=== PATIENT | male | born 1965 | race Caucasian/White ===

== ENCOUNTER 2016-10-02 20:06 | Day surgery (SDC) | payer OTHER ==
[~2016-10-02] VITALS: Ht 195.6 cm; Wt 102.6 kg
[~2016-10-02 20:06] MED LIST: LISI10TA4 PO
[2016-10-02] MEDS ORDERED: ONDANSETRON 4MG/2ML VIAL (J2405) As Ordered ONE (22:13)
[2016-10-02] MEDS ORDERED: MORPHINE 4 MG/ML 1ML SYRINGE As Ordered ONE ×2 (22:13→23:14)
[2016-10-02 22:28] LABS: BASO # 0.6 K/mm3 (0.0-0.2); BASO % 1.7 % (0.0-1.0); EOS # 0.3 K/mm3 (0.0-0.50); EOS % 0.9 % (0.0-3.0); LARGE UNSTAINED CELL # 0.8 K/mm3 (0.0-0.4); LARGE UNSTAINED CELL % 2.4 % (0.0-4.0); LYMPH # 18.7 K/mm3 (1.5-4.5); LYMPH % 52.4 % (24.0-44.0); MEAN CORPUSCULAR HEMOGLOBIN 32.6 pg (27.0-33.0); MEAN CORPUSCULAR HGB CONC 34.6 g/dl (32.0-36.5); MEAN CORPUSCULAR VOLUME 94.1 fl (80.0-96.0); MONO # 0.8 K/mm3 (0.0-0.8); MONO % 2.4 % (0.0-5.0); NEUTROPHILS # 13.7 K/mm3 (1.8-7.7); NEUTROPHILS % 40.1 % (36.0-66.0); PLATELET COUNT, AUTOMATED 224 k/mm3 (150-450); RED CELL DISTRIBUTION WIDTH 12.3 % (11.5-14.5)
[2016-10-02 22:32] LABS: WHITE BLOOD COUNT 34.1 K/mm3 (4.0-10.0)
[2016-10-02 22:38] LABS: ALBUMIN 4.3 GM/DL (3.2-5.2); ALBUMIN/GLOBULIN RATIO 1.59 (1.00-1.93); ALKALINE PHOSPHATASE 82 U/L (45-117); ALT/SGPT 60 U/L (12-78); ANION GAP 6 MEQ/L (8-16); AST/SGOT 24 U/L (15-37); BILIRUBIN,DIRECT 0.2 MG/DL (0.0-0.2); BILIRUBIN,TOTAL 0.6 MG/DL (0.2-1.0); BLOOD UREA NITROGEN 14 MG/DL (7-18); CALCIUM LEVEL 9.1 MG/DL (8.5-10.1); CARBON DIOXIDE LEVEL 31 MEQ/L (21-32); CHLORIDE LEVEL 103 MEQ/L (98-107); CREATININE FOR GFR 1.18 MG/DL (0.70-1.30); GLOMERULAR FILTRATION RATE > 60.0 (>56); GLUCOSE, FASTING 104 MG/DL (70-105); POTASSIUM SERUM 4.5 MEQ/L (3.5-5.1); SODIUM LEVEL 140 MEQ/L (136-145)
[2016-10-02] MEDS ORDERED: ISOVUE-370 76% 100ML VIAL (Q9967) As Ordered ONE (22:43)
--- NOTE | 2016-10-02 23:50 | REPUSA ---
CLINICAL HISTORY: Diverticulitis. TECHNIQUE: CT abdomen and pelvis following administration of IV contrast. COMPARISON: No pertinent prior studies are available at this time. CT ABDOMEN WITH CONTRAST: Lung bases: No lung base infiltrate or effusion. Liver: No intrahepatic ductal dilation. Gallbladder: Normally distended. Pancreas: No pancreatic duct dilation. Bowel loops: Nondistended. Spleen: Normal size. Adrenals: Normal size. Kidneys: No stones or hydronephrosis. Aorta: Normal caliber. Peritoneum: No free air. CT PELVIS WITH CONTRAST: Colon: Multiple colonic diverticula without evidence of diverticulitis. Appendix: The appendix is prominent at 12 mm diameter and demonstrates adjacent fat stranding, consis tent with appendicitis. There is no evidence of perforation or abscess. Bladder: Normally distended. Pelvic organs: Unremarkable. Peritoneum: No fluid. Skeleton: No acute findings. IMPRESSION: 1. Acute appendicitis. 2. Diverticulosis.
[2016-10-02] MEDS ORDERED: OMEP20CA3 PO (23:56)
[2016-10-03] VITALS (9 sets, daily range): BP systolic 108–141; BP diastolic 55–76
--- NOTE | 2016-10-03 00:40 | EDDOCDS ---
Physician Documentation [facility] Name: Vasiliy Joy Age: 51 yrs Sex: Male : 1965 Arrival Date: 10/02/2016 Time: 20:06 Bed I2 / M2 Private MD: Austyn Tavarez P. Disposition: 10/03/16 00:09 Hospitalization ordered by Kong Yusuf for Inpatient Admission. Preliminary diagnosis is Acute appendicitis. - Bed requested for Admit. - Status is Inpatient Admission. [facility] - Condition is Stable. - Problem is new. - Symptoms are unchanged. Historical: - Allergies: no known allergies; - Home Meds: 1. lisinopril 10 mg Oral tab 1 tab once daily - PMHx: Hypertension; CLL; GERD; Diverticulitis; - PSHx: Hernia repair; septoplasty; - Social history: Smoking status: Patient states former smoker of tobacco. No barriers to communication noted, The patient speaks fluent Kyrgyz. - Family history: Not pertinent. - : The pt / caregiver states he / she is not on anticoagulants. Home medication list is obtained from the patient. - Exposure Risk Screening:: None identified. Vital Signs: 10/02 20:07 BP 164 / 94; Pulse 69; Resp 18 S; Temp 98.1(O); Pulse Ox 99% on R/A; Weight 102.06 kg / dd6 225 lbs (R); Height 75 in. (190.50 cm) (R); 23:29 BP 128 / 69 LA Supine (auto/reg); Pulse 69 MON; Resp 18 S; Temp 99.1(O); Pulse Ox 94% cln on R/A; Pain 0/10; 10/03 00:36 BP 127 / 78; Pulse 67; Resp 16; Temp 98.2; Pulse Ox 95% ; Pain 6/10; [facility] 10/02 20:07 Body Mass Index 28.12 (102.06 kg, 190.50 cm) dd6 MDM: 10/02 21:39 NS 0.9% 1000 ml IV at bolus once ordered. mo1 21:39 Ondansetron 4 mg IVP once ordered. mo1 21:39 IV Saline Lock ordered. mo1 21:39 Undress patient appropriately for examination ordered. mo1 21:40 morphine 4 mg IVP once ordered. mo1 21:40 Basic Metabolic Profile Ordered. EDMS 21:40 CBC with Diff Ordered. EDMS 21:40 Lipase Ordered. EDMS 21:40 Liver Profile Ordered. EDMS 21:40 Urinalysis Ordered. EDMS 21:40 CT ABD & PELVIS: IV Contrast Only Ordered. EDMS 21:41 NOTHING BY MOUTH+DIET ordered. EDMS 22:35 CBC with Diff Reviewed. mo1 22:36 Urinalysis Reviewed. mo1 22:40 Basic Metabolic Profile Reviewed. mo1 22:41 Lipase Reviewed. mo1 22:41 Liver Profile Reviewed. mo1 23:06 morphine 4 mg IVP once ordered. mo1 23:43 Financial registration complete. zo 23:46 BED REQUEST+ADM ordered. EDMS 10/03 00:16 Admission Orders was scanned into [employer] and attached to record. sew Administered Medications: 10/02 22:23 Drug: NS 0.9% 1000 ml [sodium chloride 0.9 % intravenous solution] Route: IV; Rate: lf1 bolus; Site: right antecubital; 22:23 Drug: morphine 4 mg [morphine 4 mg/mL intravenous cartridge (1 mL)] Route: IVP; Site: lf1 right antecubital; 22:24 Drug: Ondansetron 4 mg [ondansetron HCl 2 mg/mL intravenous solution (2 mL)] Route: lf1 IVP; Site: right antecubital; 23:23 Drug: morphine 4 mg Route: IVP; Site: right antecubital; [facility] Signatures: Dispatcher [employer] [place] EDMS Gerard Guido Lisa, RN RN lf1 Amaris BrarRN RN [facility] Kailee Jordan Michael, PA PA mo1 Faith Fisher RN RN ms18 The chart was reviewed and I authenticate all verbal orders and agree with the evaluation and treatment provided.Attachments: 10/03 00:16 Admission Orders sew MTDD
--- NOTE | 2016-10-03 00:40 | EDDOCDS ---
Nurse's Notes [facility] Name: Vasiliy Joy Age: 51 yrs Sex: Male : 1965 Arrival Date: 10/02/2016 Time: 20:06 Bed I2 / M2 Private MD: Austyn Tavarez P. Diagnosis: Acute appendicitis Presentation: 10/02 20:24 Presenting complaint: Patient states: that he was seen at urgent care earlier today and ms18 they sent him here because they thought he had appendicitis. Pt reports nauseous and severe abd pain. Adult Sepsis Screening: The patient does not have new or worsening altered mentation. Patient's respiratory rate is less than 22. Systolic blood pressure is greater than 100. Patient has a qSOFA score of 0- Negative Sepsis Screen. Suicide/Homicide risk assessment- the patient denies having any suicidal and/or homicidal ideations and does not present with any other emotional, behavioral or mental health complaints. Status: Patient is not a non emergency services ambulance driver or dependent. Transition of care: patient was not received from another setting of care. 20:24 Acuity: DIANE Level 3 ms18 20:24 Method Of Arrival: Walkin/Carried/Asstd ms18 Triage Assessment: 20:27 General: Appears in no apparent distress, uncomfortable, Behavior is appropriate for ms18 age, cooperative, pleasant. Pain: Pain currently is 8 out of 10 on a pain scale. Quality of pain is described as dull, stabbing, Is continuous. Pain: Location: umbilical area, right lower quadrant and left lower quadrant. HIV screening NA for this visit Offered previously. Neurological: No deficits noted. Respiratory: Airway is patent Respiratory effort is even, unlabored. GI: Reports nausea. Derm: Skin is pink, warm & dry. Historical: - Allergies: no known allergies; - Home Meds: 1. lisinopril 10 mg Oral tab 1 tab once daily - PMHx: Hypertension; CLL; GERD; Diverticulitis; - PSHx: Hernia repair; septoplasty; - Social history: Smoking status: Patient states former smoker of tobacco. No barriers to communication noted, The patient speaks fluent Korean. - Family history: Not pertinent. - : The pt / caregiver states he / she is not on anticoagulants. Home medication list is obtained from the patient. - Exposure Risk Screening:: None identified. Screenin:25 Screening information is obtained from the patient. Fall risk: No risks identified. lf1 Assistance ADL's: requires no assistance with activities of daily living. Abuse/DV Screen: The patient / caregiver reports he/she is: not in a situation that causes fear, pain or injury. Nutritional screening: No deficits noted. Advance Directives: Currently, there is no health care proxy. home support is adequate. Assessment: 22:25 Adult Sepsis Screening: The patient does not have new or worsening altered mentation. lf1 Patient's respiratory rate is less than 22. Systolic blood pressure is greater than 100. Patient has a qSOFA score of 0- Negative Sepsis Screen. General: Appears in no apparent distress, comfortable, Behavior is cooperative. Pain: Location: right lower quadrant and umbilical area Pain currently is 8 out of 10 on a pain scale. Neurological: Level of Consciousness is awake, alert, Oriented to person, place, time. EENT: No deficits noted. Cardiovascular: Chest pain is denied. Respiratory: Respiratory effort is even, unlabored, Breath sounds are clear bilaterally. GI: Abdomen is non- distended Bowel sounds present X 4 quads. Abd is soft Abd is tender to palpation in right lower quadrant and left lower quadrant. : No deficits noted. Derm: Skin is normal. Injury Description: No known injury. 23:29 General: Appears in no apparent distress, comfortable, Behavior is appropriate for age, [facility] cooperative, returned from CT, requested pain meds provided, resting quietly with family at bedside, awaiting results. 10/03 00:36 General: family at bedside, awaiting admission to OR, no visible distress, no new [facility] problems or complaints, deny further needs. Vital Signs: 10/02 20:07 BP 164 / 94; Pulse 69; Resp 18 S; Temp 98.1(O); Pulse Ox 99% on R/A; Weight 102.06 kg dd6 (R); Height 75 in. (190.50 cm) (R); 23:29 BP 128 / 69 LA Supine (auto/reg); Pulse 69 MON; Resp 18 S; Temp 99.1(O); Pulse Ox 94% cln on R/A; Pain 0/10; 10/03 00:36 BP 127 / 78; Pulse 67; Resp 16; Temp 98.2; Pulse Ox 95% ; Pain 6/10; [facility] 10/02 20:07 Body Mass Index 28.12 (102.06 kg, 190.50 cm) dd6 Vitals: 10/02 20:07 Log In Time: October 02, 2016 at 20:05. dd6 ED Course: 20:07 Patient visited by Claude Rodriguez PCA. dd6 20:07 Austyn Tavarez is Private Physician. dd6 20:07 Patient moved to Waiting dd6 20:08 Patient moved to Pre RCE dd6 20:26 Triage Initiated ms18 20:52 Kg Hollis PA is PHCP. mo1 20:52 Peter Melton MD is Attending Physician. mo1 20:55 Patient moved to I7 cz 21:38 Patient visited by Kg Hollis PA. mo1 22:25 The patient / caregiver is instructed regarding the plan of care and ED course. lf1 22:25 Inserted saline lock: 20 gauge in right antecubital area and blood collected. The lf1 patient tolerated the procedure well. Labs drawn. (by ED staff). Sent per order to lab. 22:29 Patient visited by Kelley Shetty RN. lf1 22:33 Notified provider of elevated WBC of 34.1 . lf1 22:37 Patient visited by Kelley Shetty RN. lf1 22:43 Patient moved to I2 / M2 cln 23:29 Patient visited by Amaris Brar RN. [facility] 23:33 Patient visited by Kate Baker PCA. cln 01 00:09 Kong Yusuf DO is Hospitalizing Provider. mo1 00:16 Admission Orders was scanned into [employer] and attached to record. sew 00:21 CT ABD & PELVIS: IV Contrast Only Returned. EDMS 00:36 No procedures done that require assistance. [facility] Administered Medications: 10/02 22:23 Drug: NS 0.9% 1000 ml [sodium chloride 0.9 % intravenous solution] Route: IV; Rate: lf1 bolus; Site: right antecubital; 22:23 Drug: morphine 4 mg [morphine 4 mg/mL intravenous cartridge (1 mL)] Route: IVP; Site: lf1 right antecubital; 22:24 Drug: Ondansetron 4 mg [ondansetron HCl 2 mg/mL intravenous solution (2 mL)] Route: lf1 IVP; Site: right antecubital; 23:23 Drug: morphine 4 mg Route: IVP; Site: right antecubital; [facility] Order Results: Lab Order: Basic Metabolic Profile; SPEC'M 10/02/16 22:10 Test: GLUCOSE, FASTING; Value: 104; Range: 70-105; Units: MG/DL; Status: F Test: BLOOD UREA NITROGEN; Value: 14; Range: 7-18; Units: MG/DL; Status: F Test: CREATININE FOR GFR; Value: 1.18; Range: 0.70-1.30; Units: MG/DL; Status: F Test: GLOMERULAR FILTRATION RATE; Value: > 60.0; Range: >56; Status: F Test: SODIUM LEVEL; Value: 140; Range: 136-145; Units: MEQ/L; Status: F Test: POTASSIUM SERUM; Value: 4.5; Range: 3.5-5.1; Units: MEQ/L; Status: F Test: CHLORIDE LEVEL; Value: 103; Range: 98-107; Units: MEQ/L; Status: F Test: CARBON DIOXIDE LEVEL; Value: 31; Range: 21-32; Units: MEQ/L; Status: F Test: ANION GAP; Value: 6; Range: 8-16; Abnormal: Below low normal; Units: MEQ/L; Status: F Test: CALCIUM LEVEL; Value: 9.1; Range: 8.5-10.1; Units: MG/DL; Status: F Test Note: ; Units are mL/min/1.73 m2 Chronic Kidney Disease Staging per NKF: Stage I & II GFR >=60 Normal to Mildly Decreased Stage III GFR 30-59 Moderately Decreased Stage IV GFR 15-29 Severely Decreased Stage V GFR <15 Very Little GFR Left ESRD GFR <15 on OPHTHALMIC PHOTOGRAPHER Lab Order: CBC with Diff; SPEC'M 10/02/16 22:10 Test: WHITE BLOOD COUNT; Value: 34.1; Range: 4.0-10.0; Abnormal: Above upper panic limits; Units: K/mm3; Status: F Test: RED BLOOD COUNT; Value: 4.68; Range: 4.30-6.10; Units: M/mm3; Status: F Test: HEMOGLOBIN; Value: 15.2; Range: 14.0-18.0; Units: g/dl; Status: F Test: HEMATOCRIT; Value: 44.1; Range: 42.0-52.0; Units: %; Status: F Test: MEAN CORPUSCULAR VOLUME; Value: 94.1; Range: 80.0-96.0; Units: fl; Status: F Test: MEAN CORPUSCULAR HEMOGLOBIN; Value: 32.6; Range: 27.0-33.0; Units: pg; Status: F Test: MEAN CORPUSCULAR HGB CONC; Value: 34.6; Range: 32.0-36.5; Units: g/dl; Status: F Test: RED CELL DISTRIBUTION WIDTH; Value: 12.3; Range: 11.5-14.5; Units: %; Status: F Test: PLATELET COUNT, AUTOMATED; Value: 224; Range: 150-450; Units: k/mm3; Status: F Test: NEUTROPHILS %; Value: 40.1; Range: 36.0-66.0; Units: %; Status: F Test: LYMPH %; Value: 52.4; Range: 24.0-44.0; Abnormal: Above high normal; Units: %; Status: F Test: MONO %; Value: 2.4; Range: 0.0-5.0; Units: %; Status: F Test: EOS %; Value: 0.9; Range: 0.0-3.0; Units: %; Status: F Test: BASO %; Value: 1.7; Range: 0.0-1.0; Abnormal: Above high normal; Units: %; Status: F Test: LARGE UNSTAINED CELL %; Value: 2.4; Range: 0.0-4.0; Units: %; Status: F Test: NEUTROPHILS #; Value: 13.7; Range: 1.8-7.7; Abnormal: Above high normal; Units: K/mm3; Status: F Test: LYMPH #; Value: 18.7; Range: 1.5-4.5; Abnormal: Above high normal; Units: K/mm3; Status: F Test: MONO #; Value: 0.8; Range: 0.0-0.8; Units: K/mm3; Status: F Test: EOS #; Value: 0.3; Range: 0.0-0.50; Units: K/mm3; Status: F Test: BASO #; Value: 0.6; Range: 0.0-0.2; Abnormal: Above high normal; Units: K/mm3; Status: F Test: LARGE UNSTAINED CELL #; Value: 0.8; Range: 0.0-0.4; Abnormal: Above high normal; Units: K/mm3; Status: F Test Note: ; A Pathologist review of this differential can help in the evaluation of a differential diagnosis. Please order a Pathologist Review (PATHREVCOMP) if deemed necessary. Results are subject to change if a Pathologist Review is performed.\T\ Patient : 1965 Lab Order: Lipase; SPEC'M 10/02/16 22:10 Test: LIPASE; Value: 138; Range: 73-393; Units: U/L; Status: F Lab Order: Liver Profile; SPEC'M 10/02/16 22:10 Test: AST/SGOT; Value: 24; Range: 15-37; Units: U/L; Status: F Test: ALT/SGPT; Value: 60; Range: 12-78; Units: U/L; Status: F Test: ALKALINE PHOSPHATASE; Value: 82; Range: 45-117; Units: U/L; Status: F Test: BILIRUBIN,TOTAL; Value: 0.6; Range: 0.2-1.0; Units: MG/DL; Status: F Test: BILIRUBIN,DIRECT; Value: 0.2; Range: 0.0-0.2; Units: MG/DL; Status: F Test: TOTAL PROTEIN; Value: 7.0; Range: 6.4-8.2; Units: GM/DL; Status: F Test: ALBUMIN; Value: 4.3; Range: 3.2-5.2; Units: GM/DL; Status: F Test: ALBUMIN/GLOBULIN RATIO; Value: 1.59; Range: 1.00-1.93; Status: F Lab Order: Urinalysis; SPEC'M 10/02/16 22:17 Test: APPEARANCE, URINE; Value: CLEAR; Range: CLEAR; Status: F Test: COLOR, URINE; Value: YELLOW; Range: YELLOW; Status: F Test: PH,URINE; Value: 6.0; Range: 5.0-9.0; Units: UNITS; Status: F Test: SPECIFIC GRAVITY URINE AUTO; Value: 1.011; Range: 1.002-1.035; Status: F Test: PROTEIN, URINE AUTO; Value: NEGATIVE; Range: NEGATIVE; Units: mg/dL; Status: F Test: GLUCOSE, URINE (UA) AUTO; Value: NEGATIVE; Range: NEGATIVE; Units: mg/dL; Status: F Test: KETONE, URINE AUTO; Value: NEGATIVE; Range: NEGATIVE; Units: mg/dL; Status: F Test: UROBILINOGEN, URINE AUTO; Value: 0.2; Range: 0.0-2.0; Units: mg/dL; Status: F Test: BILIRUBIN, URINE AUTO; Value: NEGATIVE; Range: NEGATIVE; Status: F Test: NITRITE, URINE AUTO; Value: NEGATIVE; Range: NEGATIVE; Status: F Test: LEUKOCYTE ESTERASE, URINE AUTO; Value: NEGATIVE; Range: NEGATIVE; Status: F Test: BLOOD, URINE BLOOD; Value: 1+; Range: NEGATIVE; Abnormal: Above high normal; Status: F Test: WBC, URINE AUTO; Value: 0; Range: 0-3; Units: /HPF; Status: F Test: RBC, URINE AUTO; Value: 5; Range: 0-3; Abnormal: Above high normal; Units: /HPF; Status: F Test: BACTERIA, URINE AUTO; Value: NEGATIVE; Range: NEGATIVE; Status: F Test: SQUAMOUS EPITHELIAL CELL UR AU; Value: 0; Range: 0-6; Units: /HPF; Status: F Test: HYALINE CAST, URINE AUTO; Value: 0; Range: 0-1; Units: /LPF; Status: F Radiology Order: CT ABD & PELVIS: IV Contrast Only Test: CT ABD & PELVIS: IV Contrast Only REASON FOR EXAMINATION: Diverticulitis; ; CLINICAL HISTORY: Diverticulitis.; TECHNIQUE: CT abdomen and pelvis following administration of IV contrast.; ; COMPARISON: No pertinent prior studies are available at this time.; ; CT ABDOMEN WITH CONTRAST:; Lung bases: No lung base infiltrate or effusion.; Liver: No intrahepatic ductal dilation.; Gallbladder: Normally distended.; Pancreas: No pancreatic duct dilation.; Bowel loops: Nondistended.; Spleen: Normal size.; Adrenals: Normal size.; Kidneys: No stones or hydronephrosis.; Aorta: Normal caliber.; Peritoneum: No free air.; ; CT PELVIS WITH CONTRAST:; Colon: Multiple colonic diverticula without evidence of diverticulitis.; Appendix: The appendix is prominent at 12 mm diameter and demonstrates adjacent fat stranding, consis; tent with appendicitis. There is no evidence of perforation or abscess.; Bladder: Normally distended.; Pelvic organs: Unremarkable.; Peritoneum: No fluid.; Skeleton: No acute findings.; ; IMPRESSION:; 1. Acute appendicitis.; 2. Diverticulosis.; ; Outcome: 10/03 00:09 Decision to Hospitalize by Provider. mo1 00:36 Discharge Assessment: Patient awake, alert and oriented x 3. No cognitive and/or [facility] functional deficits noted. Patient verbalized understanding of disposition instructions. patient administered narcotics - yes. Patient was admitted to the hospital or transferred to another facility. The following High Risk Discharge criteria are identified: None. Admitted to OR accompanied by nurse, accompanied by tech, family with patient, via stretcher, with chart. Condition: good. CT Study completed. Property packaged and taken by . 00:39 Patient left the ED. [facility] Signatures: Dispatcher [employer] EDMS Mil Mariano RN ESSIE cz Kelley ShettyRN RN lf1 Claude Rodriguez, COMPOUNDING AND FINISHING SUPERVISOR COMPOUNDING AND FINISHING SUPERVISOR dd6 Amaris Brar RN RN [facility] Kailee Jordan Michael, PA PA mo1 Faith Fisher RN RN ms18 Kate Baker, COMPOUNDING AND FINISHING SUPERVISOR COMPOUNDING AND FINISHING SUPERVISOR cln MTDD
[2016-10-03] MEDS ORDERED: BUPIVACAINE/EPIN 0.25% 30 ML VIAL As Ordered ONE (00:42)
[2016-10-03] MEDS ORDERED: MIDAZOLAM INJ 2 MG/2 ML VIAL (J2250) As Ordered ONE (00:44)
[2016-10-03] MEDS ORDERED: fentaNYL 250 MCG/5 ML INJECTION (J3010) As Ordered ONE (00:44)
[2016-10-03] MEDS ORDERED: PROPOFOL 200 MG/20 ML VIAL As Ordered ONE (00:45)
[2016-10-03] MEDS ORDERED: ROCURONIUM BROMIDE 50 MG/5 ML VIAL As Ordered ONE (00:48)
[2016-10-03] MEDS ORDERED: LIDOCAINE 2% INJ 100 MG/5 ML SDV (FOR ANES.) As Ordered ONE (00:49)
[2016-10-03] MEDS ORDERED: OMEPRAZOLE 20 MG CAP PO PRN (01:00)
[2016-10-03] MEDS ORDERED: ACETAMINOPHEN TAB 650MG DOSE (2X325MG) PO PRN (01:00)
[2016-10-03] MEDS ORDERED: ONDANSETRON 4MG/2ML VIAL (J2405) IV PRN ×2 (01:00→02:45)
[2016-10-03] MEDS ORDERED: MORPHINE 2 MG/ML 1ML SYRINGE IV PRN ×2 (01:00→02:45)
[2016-10-03] MEDS ORDERED: CIPROFLOXACIN/D5W 400 MG/200 ML BAG (J0744) As Ordered ONE (01:04)
[2016-10-03] MEDS ORDERED: dexameTHASONE 4 MG/ML 1ML VIAL (J1100) As Ordered ONE (01:48)
[2016-10-03] MEDS ORDERED: ONDANSETRON 4MG/2ML VIAL (J2405) As Ordered ONE (01:57)
[2016-10-03] MEDS ORDERED: PERCOCET 5MG/325MG TAB PO PRN (02:45)
[2016-10-03] MEDS ORDERED: METOCLOPRAMIDE INJ 10MG/2ML VIAL (J2765) IV PRN (02:45)
[2016-10-03] MEDS ORDERED: fentaNYL 100 MCG/2 ML INJECTION (J3010) IV PRN (02:45)
[2016-10-03] MEDS ORDERED: LR 1,000 ML IV SCH (02:45)
[2016-10-03] MEDS: LR 1,000 ML IV SCH ×3 (04:00→20:29)
[2016-10-03] MEDS: metroNIDAZOLE 500 MG in APPROPRIATE DILUENT 1 EA IV SCH ×3 (06:11→21:34)
[2016-10-03] MEDS: HEPARIN SOD (PORCINE) 5000 UNITS/ML VIAL SC SCH ×3 (06:12→21:34)
[2016-10-03] MEDS ORDERED: SENNA 8.6 MG TAB (SENOKOT) PO SCH (09:00)
[2016-10-03] MEDS ORDERED: SENOKOT S TAB PO SCH (09:00)
[2016-10-03] MEDS ORDERED: LISINOPRIL 10 MG TAB PO SCH (09:00)
[2016-10-03] MEDS: KETOROLAC 30 MG/ML VIAL (J1885) IV PRN ×3 (09:15→23:49)
[2016-10-03] MEDS: SENOKOT S TAB PO SCH ×2 (09:15→20:29)
[2016-10-03] MEDS: LISINOPRIL 10 MG TAB PO SCH (09:16)
--- NOTE | 2016-10-03 10:39 | HPE ---
DATE OF ADMISSION: 10/03/2016 REASON FOR ADMISSION: Acute appendicitis. HISTORY OF PRESENT ILLNESS: The patient is a 51-year-old male who started with right lower quadrant pain which started around 10 o'clock this morning. The pain got progressive worse. He denies any nausea or vomiting, did have a fever by the time he to the emergency room. No other complaints. No recent travel. No recent trauma to the area. No recent illness. He never had any pains like this in the past. PAST MEDICAL HISTORY: 1. Hypertension. 2. Chronic lymphocytic leukemia (CLL). 3. Gastroesophageal reflux disease (GERD). 4. Diverticulosis. PAST SURGICAL HISTORY: 1. Hernia repair. 2. Septoplasty. HOME MEDICATIONS: Lisinopril. ALLERGIES: None. SOCIAL HISTORY: Denies any drug, alcohol, tobacco abuse. FAMILY HISTORY: Noncontributory. REVIEW OF SYSTEMS: Per positives stated in history of present illness (HPI). PHYSICAL EXAMINATION: GENERAL: Awake, alert and oriented times three, no acute distress. VITAL SIGNS: Blood pressure 164/94, pulse 69, respirations 18, temperature 98.1, pulse ox 99% room air. HEENT: Pupils equal round react to light and accommodation. HEART: S1-S2 regular rate. LUNGS: Clear to auscultation bilaterally. ABDOMEN: Soft, tender to palpation in right lower quadrant. Localized guarding. No rebounding, no rigidity. Bowel sounds positive. EXTREMITIES: No cyanosis, clubbing or edema. . LABORATORY DATA: White count 34.1, hemoglobin 15.2, platelets 224, potassium 4.5. IMAGING STUDIES: CT abdomen and pelvis shows dilated appendix a 12 mm in diameter with adjacent fat stranding concerning for appendicitis. ASSESSMENT/PLAN: Patient is a 51-year-old male with acute appendicitis. Recommendation to proceed with laparoscopy, possible open appendectomy. Risks and benefits procedure not limited to but including bleeding, infection, hernia formation, damage to surrounding structures, possible need for further surgery were discussed in detail with the patient. Informed consent was obtained and procedure was planned.
--- NOTE | 2016-10-03 11:28 | RO ---
DATE OF PROCEDURE: 10/03/2016 PREOPERATIVE DIAGNOSIS: Acute appendicitis. POSTOPERATIVE DIAGNOSIS: Acute appendicitis. PROCEDURE: Laparoscopic appendectomy. SURGEON: Dr. Yusuf. BOX COVERER HAND: None. ANESTHESIA: General: ESTIMATED BLOOD LOSS: 5. COMPLICATIONS: None. INDICATIONS FOR PROCEDURE: The patient is a 51-year-old male who presents with a 24-hour history of the right lower quadrant abdominal pain getting progressively worse. He came to the emergency room and was found to have an elevated white count, as well as CT findings consistent with acute appendicitis. After careful history and physical, recommendation was to proceed with laparoscopic appendectomy. Risks and procedure, not limited to, but including bleeding, infection, hernia formation, damage to surrounding structures and possible need for further surgery were discussed in detail with the patient. Informed was obtained and the procedure was planned. DESCRIPTION OF PROCEDURE: The patient brought back to operating room 1. After sufficient sedation, the abdomen was sterilely prepped and draped. Next, a time-out was done to confirm proper patient and proper procedure. Following that, a 5 mm incision made in left upper quadrant. Veress needle was inserted and the abdomen was insufflated to 15 mmHg. Next, a 5 mm Optiview port was used to gain access to the abdomen. Once inside, an 8 mm port was placed in the umbilicus and a 5 mm port suprapubically. The cecum was then identified and traced back to the appendix. The appendix was then elevated. It did appear grossly inflamed and edematous. Mesoappendix was taken down using Enseal. Once the base the appendix was reached, two PDS Endoloops were placed around the base and the appendix amputated using Enseal. The appendix was brought out of the umbilical port site in a 5 mm EndoCatch bag. Abdomen was then desufflated. Skin incisions were closed with #4-0 Vicryl subcuticular sutures. Abdomen was cleaned and dried. Steri-Strips, 4x4 and tape were applied, thus ending the procedure.
[2016-10-03 12:35] LABS: MEAN CORPUSCULAR HEMOGLOBIN 32.1 pg (27.0-33.0); MEAN CORPUSCULAR HGB CONC 33.9 g/dl (32.0-36.5); MEAN CORPUSCULAR VOLUME 94.7 fl (80.0-96.0); PLATELET COUNT, AUTOMATED 225 k/mm3 (150-450); RED CELL DISTRIBUTION WIDTH 12.2 % (11.5-14.5)
[2016-10-03 12:53] LABS: WHITE BLOOD COUNT 34.5 K/mm3 (4.0-10.0)
[2016-10-03 12:54] LABS: DIFF SLIDE NUMBER 91
[2016-10-03 13:04] LABS: ANION GAP 9 MEQ/L (8-16); BLOOD UREA NITROGEN 13 MG/DL (7-18); CALCIUM LEVEL 8.6 MG/DL (8.5-10.1); CARBON DIOXIDE LEVEL 26 MEQ/L (21-32); CHLORIDE LEVEL 104 MEQ/L (98-107); CREATININE FOR GFR 1.23 MG/DL (0.70-1.30); GLOMERULAR FILTRATION RATE > 60.0 (>56); GLUCOSE, FASTING 137 MG/DL (70-105); POTASSIUM SERUM 4.6 MEQ/L (3.5-5.1); SODIUM LEVEL 139 MEQ/L (136-145)
[2016-10-03] MEDS: CIPROFLOXACIN 400 MG in APPROPRIATE DILUENT 1 EA IV SCH (15:47)
[2016-10-03] MEDS: NORCO, ANEXSIA 5/325MG TABLET (HYDROcodone/ACETAMINOPHEN) PO PRN (20:30)
[2016-10-04] VITALS: BP 137/78
[2016-10-04] MEDS: CIPROFLOXACIN 400 MG in APPROPRIATE DILUENT 1 EA IV SCH (02:30)
[2016-10-04] MEDS: NORCO, ANEXSIA 5/325MG TABLET (HYDROcodone/ACETAMINOPHEN) PO PRN (02:51)
[2016-10-04] MEDS: LR 1,000 ML IV SCH (06:27)
[2016-10-04] MEDS: HEPARIN SOD (PORCINE) 5000 UNITS/ML VIAL SC SCH (06:28)
[2016-10-04] MEDS: metroNIDAZOLE 500 MG in APPROPRIATE DILUENT 1 EA IV SCH (06:28)
[2016-10-04 06:59] LABS: MEAN CORPUSCULAR HEMOGLOBIN 32.1 pg (27.0-33.0); MEAN CORPUSCULAR HGB CONC 33.4 g/dl (32.0-36.5); MEAN CORPUSCULAR VOLUME 96.3 fl (80.0-96.0); RED CELL DISTRIBUTION WIDTH 12.3 % (11.5-14.5); WHITE BLOOD COUNT 29.2 K/mm3 (4.0-10.0)
[2016-10-04 07:06] LABS: ANION GAP 9 MEQ/L (8-16); BLOOD UREA NITROGEN 17 MG/DL (7-18); CALCIUM LEVEL 8.6 MG/DL (8.5-10.1); CARBON DIOXIDE LEVEL 24 MEQ/L (21-32); CHLORIDE LEVEL 105 MEQ/L (98-107); CREATININE FOR GFR 1.21 MG/DL (0.70-1.30); GLOMERULAR FILTRATION RATE > 60.0 (>56); GLUCOSE, FASTING 105 MG/DL (70-105); MAGNESIUM LEVEL 2.3 MG/DL (1.8-2.4); POTASSIUM SERUM 4.2 MEQ/L (3.5-5.1); SODIUM LEVEL 138 MEQ/L (136-145)
[2016-10-04 08:00] VITALS: BP 129/76
[2016-10-04] MEDS ORDERED: SENN1TAB2 PO (08:36)
[2016-10-04] MEDS ORDERED: NORCOTAB PO (08:36)
[2016-10-04 09:02] VITALS: BP 129/76
[2016-10-04] MEDS: SENOKOT S TAB PO SCH (09:02)
[2016-10-04] MEDS: LISINOPRIL 10 MG TAB PO SCH (09:02)
--- NOTE | 2016-10-04 17:02 | DSES ---
DATE OF ADMISSION: 10/03/2016 DATE OF DISCHARGE: 10/04/2016 ADMISSION DIAGNOSIS: Acute appendicitis. DISCHARGE DIAGNOSIS Acute appendicitis. HOSPITAL COURSE: The patient 51-year-old male who is admitted on 10/03/2016 around midnight for acute appendicitis. He was taken to the operating room first thing in the morning just after midnight for laparoscopic appendectomy. Procedure went as planned. Postoperatively he was admitted to the floor. He was doing well in the morning and due to persistent elevated white count, he was kept for 24 hours. When I went to see him in the afternoon he was tolerating diet. His pain was much improved on the right side. No nausea or vomiting. However is white count was still elevated at 34.5, which is slightly higher than his baseline in the 20s due to his CLL. This morning 10/04/2016 again he is improving. He is still walking tolerating diet. No nausea or vomiting. No problems with urination. White count this morning is down to 29.2 which is closer to his baseline. Plan is for discharge home today and follow up me in the office in 2 weeks. PROCEDURES PERFORMED: 10/03/2016 had laparoscopic appendectomy. PLAN: Discharge home today. We will send him with scripts for [place] and senna plus. Follow up with me in the office in 2 weeks. Okay to shower and no hot tubs, baths or pools for 5 days.
--- NOTE | 2016-10-05 01:40 | EDDOCDS ---
Nurse's Notes [facility] Name: Vasiliy Joy Age: 51 yrs Sex: Male : 1965 Arrival Date: 10/02/2016 Time: 20:06 Bed I2 / M2 Private MD: Austyn Tavarez P. Diagnosis: Acute appendicitis Presentation: 10/02 20:24 Presenting complaint: Patient states: that he was seen at urgent care earlier today and ms18 they sent him here because they thought he had appendicitis. Pt reports nauseous and severe abd pain. Adult Sepsis Screening: The patient does not have new or worsening altered mentation. Patient's respiratory rate is less than 22. Systolic blood pressure is greater than 100. Patient has a qSOFA score of 0- Negative Sepsis Screen. Suicide/Homicide risk assessment- the patient denies having any suicidal and/or homicidal ideations and does not present with any other emotional, behavioral or mental health complaints. Status: Patient is not a vice president client services or dependent. Transition of care: patient was not received from another setting of care. 20:24 Acuity: DIANE Level 3 ms18 20:24 Method Of Arrival: Walkin/Carried/Asstd ms18 Triage Assessment: 20:27 General: Appears in no apparent distress, uncomfortable, Behavior is appropriate for ms18 age, cooperative, pleasant. Pain: Pain currently is 8 out of 10 on a pain scale. Quality of pain is described as dull, stabbing, Is continuous. Pain: Location: umbilical area, right lower quadrant and left lower quadrant. HIV screening NA for this visit Offered previously. Neurological: No deficits noted. Respiratory: Airway is patent Respiratory effort is even, unlabored. GI: Reports nausea. Derm: Skin is pink, warm & dry. Historical: - Allergies: no known allergies; - Home Meds: 1. lisinopril 10 mg Oral tab 1 tab once daily - PMHx: Hypertension; CLL; GERD; Diverticulitis; - PSHx: Hernia repair; septoplasty; - Social history: Smoking status: Patient states former smoker of tobacco. No barriers to communication noted, The patient speaks fluent Pashto. - Family history: Not pertinent. - : The pt / caregiver states he / she is not on anticoagulants. Home medication list is obtained from the patient. - Exposure Risk Screening:: None identified. Screenin:25 Screening information is obtained from the patient. Fall risk: No risks identified. lf1 Assistance ADL's: requires no assistance with activities of daily living. Abuse/DV Screen: The patient / caregiver reports he/she is: not in a situation that causes fear, pain or injury. Nutritional screening: No deficits noted. Advance Directives: Currently, there is no health care proxy. home support is adequate. Assessment: 22:25 Adult Sepsis Screening: The patient does not have new or worsening altered mentation. lf1 Patient's respiratory rate is less than 22. Systolic blood pressure is greater than 100. Patient has a qSOFA score of 0- Negative Sepsis Screen. General: Appears in no apparent distress, comfortable, Behavior is cooperative. Pain: Location: right lower quadrant and umbilical area Pain currently is 8 out of 10 on a pain scale. Neurological: Level of Consciousness is awake, alert, Oriented to person, place, time. EENT: No deficits noted. Cardiovascular: Chest pain is denied. Respiratory: Respiratory effort is even, unlabored, Breath sounds are clear bilaterally. GI: Abdomen is non- distended Bowel sounds present X 4 quads. Abd is soft Abd is tender to palpation in right lower quadrant and left lower quadrant. : No deficits noted. Derm: Skin is normal. Injury Description: No known injury. 23:29 General: Appears in no apparent distress, comfortable, Behavior is appropriate for age, [facility] cooperative, returned from CT, requested pain meds provided, resting quietly with family at bedside, awaiting results. 10/03 00:36 General: family at bedside, awaiting admission to OR, no visible distress, no new [facility] problems or complaints, deny further needs. Vital Signs: 10/02 20:07 BP 164 / 94; Pulse 69; Resp 18 S; Temp 98.1(O); Pulse Ox 99% on R/A; Weight 102.06 kg dd6 (R); Height 75 in. (190.50 cm) (R); 23:29 BP 128 / 69 LA Supine (auto/reg); Pulse 69 MON; Resp 18 S; Temp 99.1(O); Pulse Ox 94% cln on R/A; Pain 0/10; 10/03 00:36 BP 127 / 78; Pulse 67; Resp 16; Temp 98.2; Pulse Ox 95% ; Pain 6/10; [facility] 10/02 20:07 Body Mass Index 28.12 (102.06 kg, 190.50 cm) dd6 Vitals: 10/02 20:07 Log In Time: October 02, 2016 at 20:05. dd6 ED Course: 20:07 Patient visited by Claude Rodriguez PCA. dd6 20:07 Austyn Tavarez is Private Physician. dd6 20:07 Patient moved to Waiting dd6 20:08 Patient moved to Pre RCE dd6 20:26 Triage Initiated ms18 20:52 Kg Hollis PA is PHCP. mo1 20:52 Peter Melton MD is Attending Physician. mo1 20:55 Patient moved to I7 cz 21:38 Patient visited by Kg Hollis PA. mo1 22:25 The patient / caregiver is instructed regarding the plan of care and ED course. lf1 22:25 Inserted saline lock: 20 gauge in right antecubital area and blood collected. The lf1 patient tolerated the procedure well. Labs drawn. (by ED staff). Sent per order to lab. 22:29 Patient visited by Kelley Shetty RN. lf1 22:33 Notified provider of elevated WBC of 34.1 . lf1 22:37 Patient visited by Kelley Shetty RN. lf1 22:43 Patient moved to I2 / M2 cln 23:29 Patient visited by Amaris Brar RN. cj 23:33 Patient visited by Kate Baker PCA. cln 01 00:09 Kong Yusuf DO is Hospitalizing Provider. mo1 00:16 Admission Orders was scanned into [employer] and attached to record. sew 00:21 CT ABD & PELVIS: IV Contrast Only Returned. EDMS 00:36 No procedures done that require assistance. [facility] 01:18 [place] Payment Agreement was scanned into [employer] and attached to record. hs2 04:42 T-Sheet-- Draft Copy was scanned into [employer] and attached to record. hs2 Administered Medications: 10/02 22:23 Drug: NS 0.9% 1000 ml [sodium chloride 0.9 % intravenous solution] Route: IV; Rate: lf1 bolus; Site: right antecubital; 22:23 Drug: morphine 4 mg [morphine 4 mg/mL intravenous cartridge (1 mL)] Route: IVP; Site: lf1 right antecubital; 22:24 Drug: Ondansetron 4 mg [ondansetron HCl 2 mg/mL intravenous solution (2 mL)] Route: lf1 IVP; Site: right antecubital; 23:23 Drug: morphine 4 mg Route: IVP; Site: right antecubital; [facility] Order Results: Lab Order: Basic Metabolic Profile; SPEC'M 10/02/16 22:10 Test: GLUCOSE, FASTING; Value: 104; Range: 70-105; Units: MG/DL; Status: F Test: BLOOD UREA NITROGEN; Value: 14; Range: 7-18; Units: MG/DL; Status: F Test: CREATININE FOR GFR; Value: 1.18; Range: 0.70-1.30; Units: MG/DL; Status: F Test: GLOMERULAR FILTRATION RATE; Value: > 60.0; Range: >56; Status: F Test: SODIUM LEVEL; Value: 140; Range: 136-145; Units: MEQ/L; Status: F Test: POTASSIUM SERUM; Value: 4.5; Range: 3.5-5.1; Units: MEQ/L; Status: F Test: CHLORIDE LEVEL; Value: 103; Range: 98-107; Units: MEQ/L; Status: F Test: CARBON DIOXIDE LEVEL; Value: 31; Range: 21-32; Units: MEQ/L; Status: F Test: ANION GAP; Value: 6; Range: 8-16; Abnormal: Below low normal; Units: MEQ/L; Status: F Test: CALCIUM LEVEL; Value: 9.1; Range: 8.5-10.1; Units: MG/DL; Status: F Test Note: ; Units are mL/min/1.73 m2 Chronic Kidney Disease Staging per NKF: Stage I & II GFR >=60 Normal to Mildly Decreased Stage III GFR 30-59 Moderately Decreased Stage IV GFR 15-29 Severely Decreased Stage V GFR <15 Very Little GFR Left ESRD GFR <15 on BUTCHER HEAD Lab Order: CBC with Diff; SPEC'M 10/02/16 22:10 Test: WHITE BLOOD COUNT; Value: 34.1; Range: 4.0-10.0; Abnormal: Above upper panic limits; Units: K/mm3; Status: F Test: RED BLOOD COUNT; Value: 4.68; Range: 4.30-6.10; Units: M/mm3; Status: F Test: HEMOGLOBIN; Value: 15.2; Range: 14.0-18.0; Units: g/dl; Status: F Test: HEMATOCRIT; Value: 44.1; Range: 42.0-52.0; Units: %; Status: F Test: MEAN CORPUSCULAR VOLUME; Value: 94.1; Range: 80.0-96.0; Units: fl; Status: F Test: MEAN CORPUSCULAR HEMOGLOBIN; Value: 32.6; Range: 27.0-33.0; Units: pg; Status: F Test: MEAN CORPUSCULAR HGB CONC; Value: 34.6; Range: 32.0-36.5; Units: g/dl; Status: F Test: RED CELL DISTRIBUTION WIDTH; Value: 12.3; Range: 11.5-14.5; Units: %; Status: F Test: PLATELET COUNT, AUTOMATED; Value: 224; Range: 150-450; Units: k/mm3; Status: F Test: NEUTROPHILS %; Value: 40.1; Range: 36.0-66.0; Units: %; Status: F Test: LYMPH %; Value: 52.4; Range: 24.0-44.0; Abnormal: Above high normal; Units: %; Status: F Test: MONO %; Value: 2.4; Range: 0.0-5.0; Units: %; Status: F Test: EOS %; Value: 0.9; Range: 0.0-3.0; Units: %; Status: F Test: BASO %; Value: 1.7; Range: 0.0-1.0; Abnormal: Above high normal; Units: %; Status: F Test: LARGE UNSTAINED CELL %; Value: 2.4; Range: 0.0-4.0; Units: %; Status: F Test: NEUTROPHILS #; Value: 13.7; Range: 1.8-7.7; Abnormal: Above high normal; Units: K/mm3; Status: F Test: LYMPH #; Value: 18.7; Range: 1.5-4.5; Abnormal: Above high normal; Units: K/mm3; Status: F Test: MONO #; Value: 0.8; Range: 0.0-0.8; Units: K/mm3; Status: F Test: EOS #; Value: 0.3; Range: 0.0-0.50; Units: K/mm3; Status: F Test: BASO #; Value: 0.6; Range: 0.0-0.2; Abnormal: Above high normal; Units: K/mm3; Status: F Test: LARGE UNSTAINED CELL #; Value: 0.8; Range: 0.0-0.4; Abnormal: Above high normal; Units: K/mm3; Status: F Test Note: ; A Pathologist review of this differential can help in the evaluation of a differential diagnosis. Please order a Pathologist Review (PATHREVCOMP) if deemed necessary. Results are subject to change if a Pathologist Review is performed.\T\ Patient : 1965 Lab Order: Lipase; SPEC'M 10/02/16 22:10 Test: LIPASE; Value: 138; Range: 73-393; Units: U/L; Status: F Lab Order: Liver Profile; SPEC'M 10/02/16 22:10 Test: AST/SGOT; Value: 24; Range: 15-37; Units: U/L; Status: F Test: ALT/SGPT; Value: 60; Range: 12-78; Units: U/L; Status: F Test: ALKALINE PHOSPHATASE; Value: 82; Range: 45-117; Units: U/L; Status: F Test: BILIRUBIN,TOTAL; Value: 0.6; Range: 0.2-1.0; Units: MG/DL; Status: F Test: BILIRUBIN,DIRECT; Value: 0.2; Range: 0.0-0.2; Units: MG/DL; Status: F Test: TOTAL PROTEIN; Value: 7.0; Range: 6.4-8.2; Units: GM/DL; Status: F Test: ALBUMIN; Value: 4.3; Range: 3.2-5.2; Units: GM/DL; Status: F Test: ALBUMIN/GLOBULIN RATIO; Value: 1.59; Range: 1.00-1.93; Status: F Lab Order: Urinalysis; SPEC'M 10/02/16 22:17 Test: APPEARANCE, URINE; Value: CLEAR; Range: CLEAR; Status: F Test: COLOR, URINE; Value: YELLOW; Range: YELLOW; Status: F Test: PH,URINE; Value: 6.0; Range: 5.0-9.0; Units: UNITS; Status: F Test: SPECIFIC GRAVITY URINE AUTO; Value: 1.011; Range: 1.002-1.035; Status: F Test: PROTEIN, URINE AUTO; Value: NEGATIVE; Range: NEGATIVE; Units: mg/dL; Status: F Test: GLUCOSE, URINE (UA) AUTO; Value: NEGATIVE; Range: NEGATIVE; Units: mg/dL; Status: F Test: KETONE, URINE AUTO; Value: NEGATIVE; Range: NEGATIVE; Units: mg/dL; Status: F Test: UROBILINOGEN, URINE AUTO; Value: 0.2; Range: 0.0-2.0; Units: mg/dL; Status: F Test: BILIRUBIN, URINE AUTO; Value: NEGATIVE; Range: NEGATIVE; Status: F Test: NITRITE, URINE AUTO; Value: NEGATIVE; Range: NEGATIVE; Status: F Test: LEUKOCYTE ESTERASE, URINE AUTO; Value: NEGATIVE; Range: NEGATIVE; Status: F Test: BLOOD, URINE BLOOD; Value: 1+; Range: NEGATIVE; Abnormal: Above high normal; Status: F Test: WBC, URINE AUTO; Value: 0; Range: 0-3; Units: /HPF; Status: F Test: RBC, URINE AUTO; Value: 5; Range: 0-3; Abnormal: Above high normal; Units: /HPF; Status: F Test: BACTERIA, URINE AUTO; Value: NEGATIVE; Range: NEGATIVE; Status: F Test: SQUAMOUS EPITHELIAL CELL UR AU; Value: 0; Range: 0-6; Units: /HPF; Status: F Test: HYALINE CAST, URINE AUTO; Value: 0; Range: 0-1; Units: /LPF; Status: F Radiology Order: CT ABD & PELVIS: IV Contrast Only Test: CT ABD & PELVIS: IV Contrast Only REASON FOR EXAMINATION: Diverticulitis; ; CLINICAL HISTORY: Diverticulitis.; TECHNIQUE: CT abdomen and pelvis following administration of IV contrast.; ; COMPARISON: No pertinent prior studies are available at this time.; ; CT ABDOMEN WITH CONTRAST:; Lung bases: No lung base infiltrate or effusion.; Liver: No intrahepatic ductal dilation.; Gallbladder: Normally distended.; Pancreas: No pancreatic duct dilation.; Bowel loops: Nondistended.; Spleen: Normal size.; Adrenals: Normal size.; Kidneys: No stones or hydronephrosis.; Aorta: Normal caliber.; Peritoneum: No free air.; ; CT PELVIS WITH CONTRAST:; Colon: Multiple colonic diverticula without evidence of diverticulitis.; Appendix: The appendix is prominent at 12 mm diameter and demonstrates adjacent fat stranding, consis; tent with appendicitis. There is no evidence of perforation or abscess.; Bladder: Normally distended.; Pelvic organs: Unremarkable.; Peritoneum: No fluid.; Skeleton: No acute findings.; ; IMPRESSION:; 1. Acute appendicitis.; 2. Diverticulosis.; ; Outcome: 10/03 00:09 Decision to Hospitalize by Provider. mo1 00:36 Discharge Assessment: Patient awake, alert and oriented x 3. No cognitive and/or [facility] functional deficits noted. Patient verbalized understanding of disposition instructions. patient administered narcotics - yes. Patient was admitted to the hospital or transferred to another facility. The following High Risk Discharge criteria are identified: None. Admitted to OR accompanied by nurse, accompanied by tech, family with patient, via stretcher, with chart. Condition: good. CT Study completed. Property packaged and taken by . 00:39 Patient left the ED. [facility] Signatures: Dispatcher [employer] EDMS Mil Mariano, RN Kelley GhoshRN RN lf1 Claude Rodriguez, RN GYNECOLOGY RN GYNECOLOGY dd6 Amaris Brar RN RN [facility] Kailee Jordan Michael, PA PA mo1 Faith Fisher RN RN ms18 Doris Thomson, Reg Reg hs2 Kate Baker, RN GYNECOLOGY RN GYNECOLOGY cln Chart Complete MTDD
--- NOTE | 2016-10-05 01:40 | EDDOCDS ---
Physician Documentation [facility] Name: Vasiliy Joy Age: 51 yrs Sex: Male : 1965 Arrival Date: 10/02/2016 Time: 20:06 Bed I2 / M2 Private MD: Austyn Tavarez P. Disposition: 10/03/16 00:09 Hospitalization ordered by Kong Yusuf for Inpatient Admission. Preliminary diagnosis is Acute appendicitis. - Bed requested for Admit. - Status [facility] - Condition is Stable. - Problem is new. - Symptoms are unchanged. Historical: - Allergies: no known allergies; - Home Meds: 1. lisinopril 10 mg Oral tab 1 tab once daily - PMHx: Hypertension; CLL; GERD; Diverticulitis; - PSHx: Hernia repair; septoplasty; - Social history: Smoking status: Patient states former smoker of tobacco. No barriers to communication noted, The patient speaks fluent Martiniquais. - Family history: Not pertinent. - : The pt / caregiver states he / she is not on anticoagulants. Home medication list is obtained from the patient. - Exposure Risk Screening:: None identified. Vital Signs: 10/02 20:07 BP 164 / 94; Pulse 69; Resp 18 S; Temp 98.1(O); Pulse Ox 99% on R/A; Weight 102.06 kg / dd6 225 lbs (R); Height 75 in. (190.50 cm) (R); 23:29 BP 128 / 69 LA Supine (auto/reg); Pulse 69 MON; Resp 18 S; Temp 99.1(O); Pulse Ox 94% cln on R/A; Pain 0/10; 10/03 00:36 BP 127 / 78; Pulse 67; Resp 16; Temp 98.2; Pulse Ox 95% ; [facility] 6/10; [facility] 10/02 20:07 Body Mass Index 28.12 (102.06 kg, 190.50 cm) dd6 MDM: 10/02 21:39 NS 0.9% 1000 ml IV at bolus once ordered. mo1 21:39 Ondansetron 4 mg IVP once ordered. mo1 21:39 IV Saline Lock ordered. mo1 21:39 Undress patient appropriately for examination ordered. mo1 21:40 morphine 4 mg IVP once ordered. mo1 21:40 Basic Metabolic Profile Ordered. EDMS 21:40 CBC with Diff Ordered. EDMS 21:40 Lipase Ordered. EDMS 21:40 Liver Profile Ordered. EDMS 21:40 Urinalysis Ordered. EDMS 21:40 CT ABD & PELVIS: IV Contrast Only Ordered. EDMS 21:41 NOTHING BY MOUTH+DIET ordered. EDMS 22:35 CBC with Diff Reviewed. mo1 22:36 Urinalysis Reviewed. mo1 22:40 Basic Metabolic Profile Reviewed. mo1 22:41 Lipase Reviewed. mo1 22:41 Liver Profile Reviewed. mo1 23:06 morphine 4 mg IVP once ordered. mo1 23:43 Financial registration complete. zo 23:46 BED REQUEST+ADM ordered. EDMS 10/03 00:16 Admission Orders was scanned into [employer] and attached to record. sew 01:06 BASIC METABOLIC PROFILE Ordered. EDMS 01:06 CBC WITH DIFFERENTIAL Ordered. EDMS 01:08 Admission / Observation Status ordered. EDMS 01:08 REGULAR DIET ordered. EDMS 01:18 [place] [place] Agreement was scanned into [employer] and attached to record. hs2 04:42 T-Sheet-- Draft Copy was scanned into [employer] and attached to record. hs2 Administered Medications: 10/02 22:23 Drug: NS 0.9% 1000 ml [sodium chloride 0.9 % intravenous solution] Route: IV; Rate: lf1 bolus; Site: right antecubital; 22:23 Drug: morphine 4 mg [morphine 4 mg/mL intravenous cartridge (1 mL)] Route: IVP; Site: lf1 right antecubital; 22:24 Drug: Ondansetron 4 mg [ondansetron HCl 2 mg/mL intravenous solution (2 mL)] Route: lf1 IVP; Site: right antecubital; 23:23 Drug: morphine 4 mg Route: IVP; Site: right antecubital; [facility] Signatures: Dispatcher [employer] EDMS Gerard Guido LisaRN RN lf1 Amaris Brar RN RN [facility] Kailee Jordan Michael, PA PA mo1 Faith Fisher RN RN ms18 Doris Thomson, Reg Reg hs2 The chart was reviewed and I authenticate all verbal orders and agree with the evaluation and treatment provided.Attachments: 10/03 00:16 Admission Orders sew 01:18 [facility] Payment Agreement hs2 04:42 T-Sheet-- Draft Copy hs2 Chart Complete MTDD
--- NOTE | 2016-10-05 01:40 | EDDOCDS ---
Physician Documentation [facility] Name: Vasiliy Joy Age: 51 yrs Sex: Male : 1965 Arrival Date: 10/02/2016 Time: 20:06 Bed I2 / M2 Private MD: Austyn Tavarez P. Disposition: 10/03/16 00:09 Hospitalization ordered by Kong Yusuf for Inpatient Admission. Preliminary diagnosis is Acute appendicitis. - Bed requested for Admit. - Status is Inpatient Admission. [facility] - Condition is Stable. - Problem is new. - Symptoms are unchanged. Historical: - Allergies: no known allergies; - Home Meds: 1. lisinopril 10 mg Oral tab 1 tab once daily - PMHx: Hypertension; CLL; GERD; Diverticulitis; - PSHx: Hernia repair; septoplasty; - Social history: Smoking status: Patient states former smoker of tobacco. No barriers to communication noted, The patient speaks fluent Dutch. - Family history: Not pertinent. - : The pt / caregiver states he / she is not on anticoagulants. Home medication list is obtained from the patient. - Exposure Risk Screening:: None identified. Vital Signs: 10/02 20:07 BP 164 / 94; Pulse 69; Resp 18 S; Temp 98.1(O); Pulse Ox 99% on R/A; Weight 102.06 kg / dd6 225 lbs (R); Height 75 in. (190.50 cm) (R); 23:29 BP 128 / 69 LA Supine (auto/reg); Pulse 69 MON; Resp 18 S; Temp 99.1(O); Pulse Ox 94% cln on R/A; Pain 0/10; 10/03 00:36 BP 127 / 78; Pulse 67; Resp 16; Temp 98.2; Pulse Ox 95% ; Pain 6/10; [facility] 10/02 20:07 Body Mass Index 28.12 (102.06 kg, 190.50 cm) dd6 MDM: 10/02 21:39 NS 0.9% 1000 ml IV at bolus once ordered. mo1 21:39 Ondansetron 4 mg IVP once ordered. mo1 21:39 IV Saline Lock ordered. mo1 21:39 Undress patient appropriately for examination ordered. mo1 21:40 morphine 4 mg IVP once ordered. mo1 21:40 Basic Metabolic Profile Ordered. EDMS 21:40 CBC with Diff Ordered. EDMS 21:40 Lipase Ordered. EDMS 21:40 Liver Profile Ordered. EDMS 21:40 Urinalysis Ordered. EDMS 21:40 CT ABD & PELVIS: IV Contrast Only Ordered. EDMS 21:41 NOTHING BY MOUTH+DIET ordered. EDMS 22:35 CBC with Diff Reviewed. mo1 22:36 Urinalysis Reviewed. mo1 22:40 Basic Metabolic Profile Reviewed. mo1 22:41 Lipase Reviewed. mo1 22:41 Liver Profile Reviewed. mo1 23:06 morphine 4 mg IVP once ordered. mo1 23:43 Financial registration complete. zo 23:46 BED REQUEST+ADM ordered. EDMS 10/03 00:16 Admission Orders was scanned into [employer] and attached to record. sew 01:06 BASIC METABOLIC PROFILE Ordered. EDMS 01:06 CBC WITH DIFFERENTIAL Ordered. EDMS 01:08 Admission / Observation Status ordered. EDMS 01:08 REGULAR DIET ordered. EDMS 01:18 [facility] [place] Agreement was scanned into [employer] and attached to record. hs2 04:42 T-Sheet-- Draft Copy was scanned into [employer] and attached to record. hs2 Administered Medications: 10/02 22:23 Drug: NS 0.9% 1000 ml [sodium chloride 0.9 % intravenous solution] Route: IV; Rate: lf1 bolus; Site: right antecubital; 22:23 Drug: morphine 4 mg [morphine 4 mg/mL intravenous cartridge (1 mL)] Route: IVP; Site: lf1 right antecubital; 22:24 Drug: Ondansetron 4 mg [ondansetron HCl 2 mg/mL intravenous solution (2 mL)] Route: lf1 IVP; Site: right antecubital; 23:23 Drug: morphine 4 mg Route: IVP; Site: right antecubital; [facility] Signatures: Dispatcher [employer] EDMS Gerard Guido LisaRN RN lf1 Amaris Brar RN RN [facility] Kailee Jordan Michael, PA PA mo1 Faith Fisher RN RN ms18 Doris Thomson, Reg Reg hs2 The chart was reviewed and I authenticate all verbal orders and agree with the evaluation and treatment provided.Attachments: 10/03 00:16 Admission Orders sew 01:18 [facility] Payment Agreement hs2 04:42 T-Sheet-- Draft Copy hs2 Chart Complete MTDD
== END 2016-10-04 11:30 | disposition home or self-care (01) ==
LOC: M ED 20:06 → M OROP 10-03 00:59 → M PED 10-03 02:56 → M OROP 10-04 11:30
PROVIDERS: ATTEND Surgery
DX: K35.80 Unspecified acute appendicitis (principal); I10 Essential (primary) hypertension; C91.10 Chronic lymphocytic leukemia of B-cell type not having achieved remission; K21.9 Gastro-esophageal reflux disease without esophagitis; K57.30 Diverticulosis of large intestine without perforation or abscess without bleeding; Z79.899 Other long term (current) drug therapy
CPT/HCPCS: 36415; 44970; 74177; 80048; 80076; 81001; 83690; 83735; 85025; 85027; 88304; 96372; 96374; 96375; 96376; 99285; J0744; J1100; J1885; J2250; J2405; J3010; Q9967

== ENCOUNTER → 2017-04-30 | Outpatient (CLI) | payer OTHER ==
[~2017-04-30] MED LIST changes: +NORCOTAB PO; +OMEP20CA3 PO; +SENN1TAB2 PO
[2017-04-30 17:45] LABS: ADD MANUAL DIFFER YES; DIFF SLIDE NUMBER 197; MEAN CORPUSCULAR HEMOGLOBIN 32.7 pg (27.0-33.0); MEAN CORPUSCULAR HGB CONC 33.6 g/dl (32.0-36.5); MEAN CORPUSCULAR VOLUME 97.4 fl (80.0-96.0); PLATELET COUNT, AUTOMATED 252 k/mm3 (150-450); RED CELL DISTRIBUTION WIDTH 12.5 % (11.5-14.5); WHITE BLOOD COUNT 29.6 K/mm3 (4.0-10.0)
[2017-04-30 18:25] LABS: ALBUMIN 4.6 GM/DL (3.2-5.2); ALBUMIN/GLOBULIN RATIO 1.77 (1.00-1.93); ALKALINE PHOSPHATASE 69 U/L (45-117); ALT/SGPT 33 U/L (12-78); AMYLASE 49 U/L (25-115); ANION GAP 9 MEQ/L (8-16); AST/SGOT 19 U/L (15-37); BILIRUBIN,TOTAL 0.7 MG/DL (0.2-1.0); BLOOD UREA NITROGEN 14 MG/DL (7-18); CALCIUM LEVEL 9.7 MG/DL (8.5-10.1); CARBON DIOXIDE LEVEL 29 MEQ/L (21-32); CHLORIDE LEVEL 105 MEQ/L (98-107); CREATININE FOR GFR 1.07 MG/DL (0.70-1.30); GLOMERULAR FILTRATION RATE > 60.0 (>56); GLUCOSE, FASTING 104 MG/DL (70-105); POTASSIUM SERUM 4.6 MEQ/L (3.5-5.1); SODIUM LEVEL 143 MEQ/L (136-145); TOTAL PROTEIN 7.2 GM/DL (6.4-8.2)
[2017-04-30 21:43] LABS: SMUDGE CELLS 2+
== END ==
LOC: M WUC 11:35
PROVIDERS: ATTEND Emergency Medicine
DX: R10.11 Right upper quadrant pain (principal)

== ENCOUNTER → 2017-05-03 | Outpatient (CLI) | payer OTHER ==
--- NOTE | 2017-05-04 08:11 | REP ---
Clinical: Right upper quadrant abdominal pain. Technique: Glass scale ultrasound using curved array transducer. Findings: The liver and pancreas are normal in contour, size, and echogenicity without focal hepatic or pancreatic lesions identified. The gallbladder is normal without gallstones, wall thickening or pericholecystic fluid. No biliary ductal dilatation is appreciated, and the common bile duct measures 3.0 mm diameter. The right kidney is normal in reniform shape without hydronephrosis and measures 10.9 x 5.5 x 4.7 cm. No ascites. Visualized portions of the abdominal aorta normal. Impression: Normal right upper quadrant and gallbladder abdominal ultrasound. Signed by Ar Odell MD 05/04/2017 04:24 A
== END ==
LOC: M RAD 08:11
PROVIDERS: ATTEND Emergency Medicine
DX: R10.11 Right upper quadrant pain (principal)

== ENCOUNTER → 2017-08-19 | Outpatient (CLI) | payer OTHER ==
[2017-08-19 19:01] LABS: ALBUMIN 4.4 GM/DL (3.2-5.2); ANION GAP 4 MEQ/L (8-16); BLOOD UREA NITROGEN 10 MG/DL (7-18); CARBON DIOXIDE LEVEL 31 MEQ/L (21-32); CHLORIDE LEVEL 106 MEQ/L (98-107); CREATININE FOR GFR 1.07 MG/DL (0.70-1.30); GLOMERULAR FILTRATION RATE > 60.0 (>56); GLUCOSE, FASTING 92 MG/DL (70-105); PHOSPHORUS LEVEL 2.7 MG/DL (2.5-4.9); POTASSIUM SERUM 4.3 MEQ/L (3.5-5.1); SODIUM LEVEL 141 MEQ/L (136-145)
== END ==
LOC: M WUC 15:20
PROVIDERS: ATTEND Physician Assistant
DX: I10 Essential (primary) hypertension (principal)

== ENCOUNTER → 2018-02-07 | Outpatient (CLI) | payer OTHER | LOC: M SLEEP 19:22 | DX: R06.83 Snoring (principal) ==

== ENCOUNTER → 2018-07-05 | Outpatient (CLI) | payer OTHER | LOC: M RAD 07:52 | DX: R10.11 Right upper quadrant pain (principal) | CPT/HCPCS: J2805 ==

== ENCOUNTER → 2018-07-11 | Outpatient (CLI) | payer OTHER ==
[~2018-07-11] MED LIST changes: +GASTROGRAFIN SOLUTION 30ML (Q9963) As Ordered; +ISOVUE-370 76% 100ML VIAL (Q9967) As Ordered; -LISI10TA4 PO; -NORCOTAB PO; -OMEP20CA3 PO; -SENN1TAB2 PO
== END ==
LOC: M RAD 07:35
DX: R10.11 Right upper quadrant pain (principal); K57.30 Diverticulosis of large intestine without perforation or abscess without bleeding
CPT/HCPCS: Q9963

== ENCOUNTER 2018-08-15 09:08 | Day surgery (SDC) | payer OTHER ==
[2018-08-15] MEDS: NS 1,000 ML IV (09:30)
[2018-08-15] MEDS ORDERED: PROPOFOL 200 MG/20 ML VIAL As Ordered ×3 (11:04→11:21)
[2018-08-15] MEDS ORDERED: LIDOCAINE 2% INJ 100 MG/5 ML SDV (FOR ANES.) As Ordered (11:05)
== END 2018-08-15 11:55 | disposition home or self-care (01) ==
LOC: M OPP 09:08
DX: R10.11 Right upper quadrant pain (principal); Z86.010 Personal history of colon polyps; D12.2 Benign neoplasm of ascending colon; D12.7 Benign neoplasm of rectosigmoid junction; R12 Heartburn; K44.9 Diaphragmatic hernia without obstruction or gangrene
CPT/HCPCS: 45385

== ENCOUNTER 2018-11-18 07:23 | Day surgery (SDC) | payer OTHER ==
[~2018-11-18] VITALS: Ht 193 cm; Wt 103.4 kg
[~2018-11-18 07:23] MED LIST changes: +BUPIVACAINE/EPIN 0.25% 30 ML VIAL As Ordered ONE; -GASTROGRAFIN SOLUTION 30ML (Q9963) As Ordered; -ISOVUE-370 76% 100ML VIAL (Q9967) As Ordered; +LIDOCAINE 2% INJ 100 MG/5 ML SDV (FOR ANES.) As Ordered ONE; +LISI10TA4 PO; +LR 1,000 ML IV ONE; +MIDAZOLAM INJ 2 MG/2 ML VIAL (J2250) As Ordered ONE; +MULT1TAB10 PO; +NORCOTAB PO; +OMEP20CA3 PO; +ONDANSETRON 4MG/2ML VIAL (J2405) As Ordered ONE; +PANT20TA2 PO; +PROPOFOL 200 MG/20 ML VIAL As Ordered ONE; +ROCURONIUM BROMIDE 50 MG/5 ML VIAL As Ordered ONE; +SENN1TAB2 PO; +dexameTHASONE 4 MG/ML 1ML VIAL (J1100) As Ordered ONE; +fentaNYL 100 MCG/2 ML INJECTION (J3010) As Ordered ONE
[2018-11-18] MEDS ORDERED: KETOROLAC 60 MG/2 ML VIAL (J1885) As Ordered ONE (07:50)
[2018-11-18] MEDS ORDERED: fentaNYL 100 MCG/2 ML INJECTION (J3010) As Ordered ONE (07:56)
[2018-11-18] MEDS ORDERED: GLYCOPYRROLATE INJ 0.2 MG/ML 2 ML VIAL As Ordered ONE (07:56)
[2018-11-18] MEDS ORDERED: ePHEDrine SULFATE 25 MG/5 ML(5MG/ML) SYRINGE As Ordered ONE (08:05)
[2018-11-18] MEDS ORDERED: ROCURONIUM BROMIDE 50 MG/5 ML VIAL As Ordered ONE (08:06)
[2018-11-18] MEDS ORDERED: SUGAMMADEX SODIUM 500 MG/5 ML VIAL (BRIDION) As Ordered ONE (08:06)
[2018-11-18] MEDS ORDERED: NORCO, ANEXSIA 5/325MG TABLET (HYDROcodone/ACETAMINOPHEN) PO PRN (08:45)
[2018-11-18] MEDS ORDERED: HYDROMORPHONE HCL 0.5 MG/ 0.5 ML SYRINGE (J1170 PER 1) IV PRN (08:45)
[2018-11-18] MEDS ORDERED: fentaNYL 100 MCG/2 ML INJECTION (J3010) IV PRN (08:45)
[2018-11-18] MEDS ORDERED: LR 1,000 ML IV SCH (08:45)
[2018-11-18] MEDS: PERCOCET 5MG/325MG TAB PO PRN ×2 (08:49→09:20)
[2018-11-18 11:30] VITALS: BP 140/78
--- NOTE | 2018-11-19 16:12 | RO ---
DATE OF PROCEDURE: 11/18/2018 PREOPERATIVE DIAGNOSIS: Symptomatic cholelithiasis. POSTOPERATIVE DIAGNOSIS: Symptomatic cholelithiasis. PROCEDURE: Laparoscopic cholecystectomy. SURGEON: Kong Yusuf DO TRIAGE TECHNICIAN: None. ANESTHESIA: General ESTIMATED BLOOD LOSS (EBL): 5. COMPLICATION: None. INDICATION FOR PROCEDURE: The patient is a 53-year-old male who presents with persistent right upper quadrant abdominal pains, found have symptomatic cholelithiasis. Recommendation was to proceed laparoscopic possible open cholecystectomy. Risks and benefits of the procedure not limited but including bleeding, infection, hernia formation, damage to surrounding structures, and need for further surgery were discussed in detail with the patient. Informed consent was obtained, and the procedure was planned. DESCRIPTION OF PROCEDURE: The patient brought back to operating room #2 after sufficient sedation and was sterilely prepped and draped. Next, time-out was done to confirm proper patient and proper procedure. Following that, a stab incision was made in the left lower quadrant, Veress needle was inserted, and the abdomen was insufflated to 15 mmHg. Next, the Veress needle was removed, and a 5mm Optiview port was used to gain access the abdomen supraumbilically in the midline. Once the port was placed, the abdomen was examined. Subxiphoid 11-mm port was then placed and two 5-mm ports in the right upper quadrant. The fundus of gallbladder was grasped, elevated up towards right shoulder. The cystic duct and cystic artery were then carefully dissected free using a combination of blunt and sharp dissection. Once they were both identified, they were both doubly clipped and cut. The gallbladder was then removed from the gallbladder fossa using electrocautery, brought out through the subxiphoid port site in a 10-mm EndoCatch bag. The abdomen was then examined one last time to confirm hemostasis. The abdomen was then desufflated. Skin incisions were closed with 4-0 Vicryl subcuticular sutures. The abdomen cleaned and dried. Steri-Strips, 4 x 4, and tape were applied, thus ending the procedure.
== END 2018-11-18 11:44 | disposition home or self-care (01) ==
LOC: M SDC 07:23
PROVIDERS: ATTEND Surgery
DX: K81.1 Chronic cholecystitis (principal); I10 Essential (primary) hypertension; K21.9 Gastro-esophageal reflux disease without esophagitis; C91.10 Chronic lymphocytic leukemia of B-cell type not having achieved remission; Z79.899 Other long term (current) drug therapy
CPT/HCPCS: 47562; 88304; J1100; J1885; J2250; J2405; J3010

== ENCOUNTER 2019-09-12 05:56 | Day surgery (SDC) | payer OTHER ==
[~2019-09-12] VITALS: Ht 190.5 cm; Wt 100.9 kg
[~2019-09-12 05:56] MED LIST changes: +ASPI81TA85 PO; -BUPIVACAINE/EPIN 0.25% 30 ML VIAL As Ordered ONE; +HYDR-3715 PO; -LIDOCAINE 2% INJ 100 MG/5 ML SDV (FOR ANES.) As Ordered ONE; -LR 1,000 ML IV ONE; -MIDAZOLAM INJ 2 MG/2 ML VIAL (J2250) As Ordered ONE; -NORCOTAB PO; +OMEP-172 PO; -OMEP20CA3 PO; -ONDANSETRON 4MG/2ML VIAL (J2405) As Ordered ONE; +PANT40TA3 PO; -PROPOFOL 200 MG/20 ML VIAL As Ordered ONE; -ROCURONIUM BROMIDE 50 MG/5 ML VIAL As Ordered ONE; +SENN-53 PO; -SENN1TAB2 PO; -dexameTHASONE 4 MG/ML 1ML VIAL (J1100) As Ordered ONE; -fentaNYL 100 MCG/2 ML INJECTION (J3010) As Ordered ONE
[2019-09-12] MEDS ORDERED: LR 1,000 ML IV ONE (07:00)
[2019-09-12] MEDS ORDERED: ceFAZolin SOD 2 GM in IV 1 EA IV ONE (07:00)
[2019-09-12] MEDS ORDERED: BUPIVACAINE/EPIN 0.25% 30 ML VIAL As Ordered ONE (07:10)
[2019-09-12] MEDS ORDERED: BUPIVACAINE HCL 0.25% 30 ML VIAL As Ordered ONE (07:10)
[2019-09-12] MEDS ORDERED: fentaNYL 100 MCG/2 ML INJECTION (J3010) As Ordered ONE (07:46)
[2019-09-12] MEDS ORDERED: dexameTHASONE 4 MG/ML 1ML VIAL (J1100) As Ordered ONE (07:46)
[2019-09-12] MEDS ORDERED: LIDOCAINE 2% INJ 100 MG/5 ML SDV (FOR ANES.) As Ordered ONE (07:46)
[2019-09-12] MEDS ORDERED: MIDAZOLAM INJ 2 MG/2 ML VIAL (J2250) As Ordered ONE (07:46)
[2019-09-12] MEDS ORDERED: ROCURONIUM BROMIDE 50 MG/5 ML VIAL As Ordered ONE (07:46)
[2019-09-12] MEDS ORDERED: PROPOFOL 200 MG/20 ML VIAL As Ordered ONE (07:46)
[2019-09-12] MEDS ORDERED: GLYCOPYRROLATE INJ 0.2 MG/ML 2 ML VIAL As Ordered ONE (07:47)
[2019-09-12] MEDS ORDERED: ePHEDrine SULFATE 25 MG/5 ML(5MG/ML) SYRINGE As Ordered ONE (07:49)
[2019-09-12] MEDS ORDERED: ACETAMINOPHEN 1000MG 100ML IV BTL (OFIRMEV) (J0131 PER 10MG) As Ordered ONE (08:04)
[2019-09-12] MEDS ORDERED: ONDANSETRON 4MG/2ML VIAL (J2405) As Ordered ONE ×2 (08:08→08:41)
[2019-09-12] MEDS ORDERED: SUGAMMADEX SODIUM 500 MG/5 ML VIAL (BRIDION) As Ordered ONE (08:09)
[2019-09-12] MEDS ORDERED: KETOROLAC 60 MG/2 ML VIAL (J1885) As Ordered ONE (08:10)
[2019-09-12] MEDS: oxyCODONE 5MG TAB PO PRN ×2 (08:40→09:10)
[2019-09-12] MEDS ORDERED: oxyCODONE 5MG TAB As Ordered ONE (08:41)
[2019-09-12] MEDS ORDERED: LR 1,000 ML IV SCH (08:45)
[2019-09-12] MEDS ORDERED: ONDANSETRON 4MG/2ML VIAL (J2405) IV PRN (08:45)
[2019-09-12] MEDS ORDERED: NORCO, ANEXSIA 5/325MG TABLET (HYDROcodone/ACETAMINOPHEN) PO PRN (09:00)
[2019-09-12] MEDS: fentaNYL 100 MCG/2 ML INJECTION (J3010) IV PRN ×4 (09:10→09:25)
[2019-09-12 13:00] VITALS: BP 133/75
--- NOTE | 2019-09-15 06:58 | RO ---
DATE OF PROCEDURE: 09/12/2019 PREOPERATIVE DIAGNOSIS: Incisional hernia. POSTOPERATIVE DIAGNOSIS: Incisional hernia. PROCEDURE PERFORMED: Robotic repair of incisional hernia. SURGEON: Dr. Kong Yusuf. CAD DESIGNER DRAFTER: None. ANESTHESIA: General ESTIMATED BLOOD LOSS: 5 mL. COMPLICATIONS None. INDICATION FOR PROCEDURE: The patient is a 54-year-old male who presents with incisional hernia status post laparoscopic cholecystectomy in the epigastric area. Recommendation to proceed with robotic repair, risks of the procedure not limited but including bleeding, infection, hernia formation, damage to surrounding structures, need for further surgery were discussed in detail with the patient. Informed consent was obtained procedure planned. DESCRIPTION OF PROCEDURE: The patient brought back to operating room 7. After sufficient sedation, the abdomen was sterilely prepped and draped. Next time-out was done to confirm proper patient and proper procedure. Following that an 8 mm incision made in left lower quadrant, Veress needle inserted and the abdomen was insufflated to 15 mm Hg. Next the Veress needle was removed and an 8 mm robotic OPTIVIEW port was used to gain access to the abdomen. Once the abdomen was entered, another port was placed at the umbilicus through the midline and another 8 mm port in the right midabdomen the robot was then connected to the ports. Next, from the console the peritoneum was entered just to the left of the falciform ligament, I dissected superiorly until I reached the hernia defect. I dissected circumferentially reduce the fat out of the defect. Then using an 0 Stratafix, I primarily closed the defect. Then a 3 cm round ProGrip mesh was placed inside of the preperitoneal space over top of the closed defects. The peritoneum was then closed with running #2-0 V-Loc. The abdomen was then desufflated. Skin incisions closed with #4-0 Vicryl subcuticular sutures thus ending procedure. The patient tolerated the procedure well and was sent to the postanesthesia care unit (PACU) in stable condition.
== END 2019-09-12 13:05 | disposition home or self-care (01) ==
LOC: M SDC 05:56
PROVIDERS: ATTEND Surgery
DX: K43.2 Incisional hernia without obstruction or gangrene (principal); I10 Essential (primary) hypertension; K21.9 Gastro-esophageal reflux disease without esophagitis; C91.10 Chronic lymphocytic leukemia of B-cell type not having achieved remission; Z79.82 Long term (current) use of aspirin; Z79.899 Other long term (current) drug therapy
CPT/HCPCS: 49654; C1781; J0131; J0690; J1100; J1885; J2250; J2405; J3010

== ENCOUNTER → 2020-08-10 | Outpatient (CLI) | payer OTHER ==
[~2020-08-10] MED LIST changes: -ASPI81TA85 PO; +ASPI81TA86 PO; -OMEP-172 PO; +OMEP1CAP73 PO; -PANT20TA2 PO; +PANT20TA6 PO; +PANT40TA29 PO; -PANT40TA3 PO
--- NOTE | 2020-08-10 08:51 | REP ---
INDICATION: EPIGASTRIC PAIN PATIENT WITH HERNIA REPAIR 11 MONTHS AGO WITH MESH. PAIN IN THE EPIGASTRIC AREA. EVALUATE FOR HERNIA OR SCAR.. COMPARISON: CT 07/11/2018 TECHNIQUE: Sonographic CT scanning of the abdominal wall in the midline upper abdomen in the area of pain. FINDINGS: Rectus muscles are symmetric and normal in appearance there is no diastasis or hernia visible. See no abnormal fluid collection or mass. No abdominal wall findings in the region of his pain. IMPRESSION: Negative limited abdominal ultrasound of the upper abdominal wall in area of epigastric pain. No mass, asymmetry of the rectus muscles, visible hernia, fluid collection or other acute finding. <Electronically signed by Yakov Brasher > 08/10/20 0824
== END ==
LOC: M RAD 07:59
PROVIDERS: ATTEND Surgery
DX: R13.10 Dysphagia, unspecified (principal)

== ENCOUNTER → 2024-01-09 | Outpatient (CLI) | payer OTHER ==
[~2024-01-09] MED LIST changes: +LISI10TA22 PO; -LISI10TA4 PO
== END ==
LOC: M WHC 07:34
PROVIDERS: ATTEND Student in an Organized Health Care Education/Training Program
DX: S22.000A Wedge compression fracture of unspecified thoracic vertebra, initial encounter for closed fracture (principal); X58.XXXA Exposure to other specified factors, initial encounter; Y92.9 Unspecified place or not applicable; Y93.9 Activity, unspecified; Y99.9 Unspecified external cause status

== ENCOUNTER 2024-04-30 07:07 | Day surgery (SDC) | payer OTHER ==
[~2024-04-30] VITALS: Ht 193 cm; Wt 101.6 kg
[~2024-04-30 07:07] MED LIST changes: +BAYE81TA10 PO; +LOSA50TA28 PO; +OMEP-173 PO; +REDCAP13 PO; +TERA1CAP3 PO
[2024-04-30] MEDS: NS 1,000 ML IV ONE (07:20)
[2024-04-30] MEDS ORDERED: LIDOCAINE 2% 100MG/5ML SDV (FOR ANES.) As Ordered ONE (08:17)
[2024-04-30] MEDS ORDERED: propofoL 200 MG/20 ML VIAL As Ordered ONE (08:17)
[2024-04-30 08:42] VITALS: TEMP 97.4
[2024-04-30 08:52] VITALS: BP 136/80; O2SAT 97
== END 2024-04-30 08:59 | disposition home or self-care (01) ==
LOC: M OPP 07:07
PROVIDERS: ATTEND Surgery
DX: Z12.11 Encounter for screening for malignant neoplasm of colon (principal); Z86.010 Personal history of colon polyps; Z80.0 Family history of malignant neoplasm of digestive organs; K63.5 Polyp of colon; K64.0 First degree hemorrhoids; K57.30 Diverticulosis of large intestine without perforation or abscess without bleeding; Z87.891 Personal history of nicotine dependence; Z79.82 Long term (current) use of aspirin; Z79.899 Other long term (current) drug therapy